=== PATIENT | female | born 1940 | race Caucasian/White ===

== ENCOUNTER 2017-05-15 22:03 | Inpatient (IN) | payer OTHER ==
[~2017-05-15] VITALS: Ht 157.5 cm; Wt 98.3 kg
[~2017-05-15 22:03] MED LIST: ADULT LOW DOSE81 M1 PO; ANTIVERT25 MG PO; B-50 COMPLEX1 EACH PO; CALTRATE PLUS1 EACH PO; COUMADIN1 MG PO; CRANBERRY500 MG PO; HYDROCODON-ACE1 EAC7 PO; KLOR-CON M2020 MEQ PO; LEVOTHYROXINE137 MCG PO; METHOCARBAMOL500 MG PO; NAPROXEN SODIU220 M1 PO; NON-ASPIRIN PA500 M1 PO; OMEGA 3 1,0001 EACH PO; OS-CAL 500+D T1 EAC1 PO; OXYCODONE HCL5 MG PO; SIMVASTATIN40 MG PO; SYNTHROID150 MCG PO; TRAMADOL HCL50 MG PO; TRIAMTERENE/HC1 EACH PO; ULTRACET1 TABLET PO; ULTRAM50 MG PO; VERAPAMIL HCL180 MG PO; VERAPAMIL PO; VITAMIN C500 M1 PO; XANAX0.5 MG PO
[2017-05-16] MEDS ORDERED: FISH OIL 1,0001 EAC7 PO (09:52)
[2017-05-16 09:54] VITALS: BP 144/63
[2017-05-16 15:52] VITALS: BP 134/61
[2017-05-16 19:54] VITALS: BP 131/60
[2017-05-17] VITALS (7 sets, daily range): BP systolic 124–135; BP diastolic 58–65
[2017-05-17 07:20] LABS: HEMATOCRIT 37.2 % (36.0-46.0); HEMOGLOBIN 12.6 G/DL (11.9-15.5); MCV 93.5 FL (83-99)
[2017-05-17 07:37] LABS: CHLORIDE 98 MEQ/L (99-109); POTASSIUM 3.6 MEQ/L (3.7-5.4); SODIUM 134 MEQ/L (136-147)
[2017-05-17 07:42] LABS: CREATININE 0.8 MG/DL (0.6-1.3); GFR ESTIMATE (CALCULATED) > 59 mL/min/; GLUCOSE 142 mg/dL (70-99); UREA NITROGEN (BUN) 14 mg/dL (9-23)
[2017-05-17] MEDS ORDERED: CELECOXIB200 MG PO (09:28)
[2017-05-17] MEDS ORDERED: ELIQUIS2.5 MG PO (09:28)
[2017-05-17] MEDS ORDERED: METOCLOPRAMIDE10 MG PO (09:28)
[2017-05-17] MEDS ORDERED: OXYCODONE HCL5 MG PO (09:28)
[2017-05-17] MEDS ORDERED: OXYCONTIN10 MG PO (09:28)
[2017-05-17] MEDS ORDERED: SENNA PLUS TAB1 EACH PO (09:28)
[2017-05-18 00:15] VITALS: BP 132/62
[2017-05-18 04:21] VITALS: BP 127/62
[2017-05-18 06:36] LABS: HEMATOCRIT 32.8 % (36.0-46.0); HEMOGLOBIN 11.3 G/DL (11.9-15.5); MCV 92.7 FL (83-99)
[2017-05-18 07:05] LABS: ALBUMIN 3.8 G/DL (3.2-4.8); ALKALINE PHOSPHATASE 47 IU/L (3-129); ALT (GPT) 11 IU/L (3-49); AST (GOT) 22 IU/L (2-34); CHLORIDE 95 MEQ/L (99-109); CREATININE 0.8 MG/DL (0.6-1.3); GFR ESTIMATE (CALCULATED) > 59 mL/min/; POTASSIUM 3.5 MEQ/L (3.7-5.4); SODIUM 132 MEQ/L (136-147); TOTAL BILIRUBIN 0.8 MG/DL (0.0-1.0); TOTAL PROTEIN 5.6 G/DL (6.4-8.3); UREA NITROGEN (BUN) 17 mg/dL (9-23)
[2017-05-18 07:07] LABS: GLUCOSE 100 mg/dL (70-99)
[2017-05-18 08:00] VITALS: BP 115/54
[2017-05-18 12:15] VITALS: BP 146/65
== END 2017-05-18 15:45 | DRG 470 ==
LOC: ENRESERV 22:03 → 2SOUTH 05-16 09:17 → 3WEST 05-16 15:34 → 2SOUTH 05-16 15:56 → 3WEST 05-18 15:45
PROVIDERS: Orthopaedic Surgery; Physician Assistant
DX: M16.11 Unilateral primary osteoarthritis, right hip (principal); M25.751 Osteophyte, right hip; E87.1 Hypo-osmolality and hyponatremia; E87.6 Hypokalemia; I10 Essential (primary) hypertension; E03.9 Hypothyroidism, unspecified; J44.9 Chronic obstructive pulmonary disease, unspecified; F32.9 Major depressive disorder, single episode, unspecified
CPT/HCPCS: 73501; 73522; 80048; 80053; 85014; 85018; C1713; J0131; J0690; J1100; J2405; J3010; J7040; J7050